=== PATIENT | male | born 1985 | race Caucasian/White ===

== ENCOUNTER 2022-04-07 06:17 | Observation (INO) ==
--- NOTE | 2022-03-16 13:51 | PAT Medication Instructions ---
Medication Instructions Date of Service March 16, 2022 Home Medications Medication Instructions Recorded Wheeled Walker #1 ea 02/25/22 Wheeled Walker #1 ea 02/25/22 Wheeled Walker #1 ea 02/25/22 escitalopram oxalate 10 mg tablet (Lexapro) 10 mg PO QAM acetaminophen 325 mg tablet (Tylenol) 325 mg PO QID PRN atorvastatin 40 mg tablet 40 mg PO HS carvedilol 3.125 mg tablet 3.125 mg PO BID cyclobenzaprine 10 mg tablet 10 mg PO TID PRN escitalopram oxalate 20 mg tablet 20 mg PO QAM gabapentin 800 mg tablet 800 mg PO TID ibuprofen 200 mg capsule 200 mg PO Q6H PRN omeprazole 40 mg capsule,delayed release 40 mg PO QAM ASK your surgeon for instructions ibuprofen 200 mg capsule 200 mg PO Q6H PRN DO NOT take the morning of surgery cyclobenzaprine 10 mg tablet 10 mg PO TID PRN Take morning of surgery With a small sip of water, OTHERWISE NOTHING TO EAT OR DRINK AFTER MIDNIGHT: escitalopram oxalate 10 mg tablet (Lexapro) 10 mg PO QAM acetaminophen 325 mg tablet (Tylenol) 325 mg PO QID PRN (okay to take up to 4 hours prior to surgery if needed) carvedilol 3.125 mg tablet 3.125 mg PO BID escitalopram oxalate 20 mg tablet 20 mg PO QAM gabapentin 800 mg tablet 800 mg PO TID omeprazole 40 mg capsule,delayed release 40 mg PO QAM Take evening before surgery acetaminophen 325 mg tablet (Tylenol) 325 mg PO QID PRN (if needed) atorvastatin 40 mg tablet 40 mg PO HS carvedilol 3.125 mg tablet 3.125 mg PO BID cyclobenzaprine 10 mg tablet 10 mg PO TID PRN (if needed) gabapentin 800 mg tablet 800 mg PO TID Other Notes If you have any questions please call us at [phone] or [phone] or [phone] or [phone]
--- NOTE | 2022-03-17 10:10 | Anesthesiology Consultation ---
Date of Service March 17, 2022 Assessment & Plan (1) Encounter for pre-operative examination: - will attempt to obtain last cardiology note. - PCP 02/10/22: "...AVN of [sic] R femoral head...denies any...shortness of breath, chest pains, palps...FU with PM...ortho consult..." - COVID screening: Per assessment on 03/17/2022: Travel screen negative, no known COVID-19 positive contacts or current COVID-19 related symptoms in past 2 weeks. Pt vaccinated. Surgeon arranging preop COVID testing, scheduled 04/05/2022. Awaiting results. Chart Review Chart Review: Pending: Refer to Additional Notes / Consult section and Patient seen in Pre Admission Testing Teaching & Discussion Pre-Anesthesia Teaching/Discussion Notes: Instructed NPO after midnight before surgery, except medications with 15 cc of water. Medication instructions provided according to the PAT guidelines. History Surgery Operation Date: 04/07/22 08:50 Proposed Procedures p Right Total Hip Arthroplasty - Jeff Molina MD Height/Weight Height: 5 ft 8 in Weight: 109 kg Allergies Allergy/AdvReac Type Severity Reaction Status Date / Time No Known Allergies Allergy Verified 03/16/22 11:10 Medications Home Medications Medication Instructions Recorded Confirmed Last Taken escitalopram oxalate 10 mg tablet 10 mg PO QAM 05/29/19 03/16/22 Unknown (Lexapro) Wheeled Walker #1 ea 02/25/22 02/25/22 Unknown Wheeled Walker #1 ea 02/25/22 02/25/22 Unknown Wheeled Walker #1 ea 02/25/22 02/25/22 Unknown acetaminophen 325 mg tablet 325 mg PO QID PRN 03/16/22 03/16/22 Unknown (Tylenol) atorvastatin 40 mg tablet 40 mg PO HS 03/16/22 03/16/22 Unknown carvedilol 3.125 mg tablet 3.125 mg PO BID 03/16/22 03/16/22 Unknown cyclobenzaprine 10 mg tablet 10 mg PO TID PRN 03/16/22 03/16/22 Unknown escitalopram oxalate 20 mg tablet 20 mg PO QAM 03/16/22 03/16/22 Unknown gabapentin 800 mg tablet 800 mg PO TID 03/16/22 03/16/22 Unknown ibuprofen 200 mg capsule 200 mg PO Q6H PRN 03/16/22 03/16/22 Unknown omeprazole 40 mg capsule,delayed 40 mg PO QAM 03/16/22 03/16/22 Unknown release Past Medical History Medical History (Updated 03/17/22 @ 10:35 by Renu Puente PA-C) Anxiety Avascular necrosis of hip Depression GERD (gastroesophageal reflux disease) controlled, stable per pt Hyperlipidemia Hypertension controlled, stable per pt Patient denies h/o stroke, seizures, heart attack, heart failure, DM, HTN, blood clots or blood transfusions. Exercise / Class Metabolic Activity II 4-5 Yardwork/Stairs/Walk up hill (denies CP or SOB with 1 FOS) Past Surgical History Surgical History (Updated 03/17/22 @ 14:05 by Renu Puente PA-C) History of cardiac cath 11/18/21--[facility] [place]: normal coronary arteries per report. Hx of removal of cyst from base of penis Hx of wisdom tooth extraction Past Anesthesia History No Hx of Anesthesia Complications and No Family Hx of Anesthesia Complications History of PONV No Hx of PONV and No Hx of Motion Sickness Social History Smoking Status: Current every day smoker tobacco type: cigarettes Smoking cigarettes per day: 1/2 - 3 ppd-advsed Do You Dip or Chew Tobacco: No Hx Alcohol Use: Yes alcohol intake frequency: holidays/special occasions only Hx Substance Use: No Last Used Substance Other:: THC gummies-advised Review of Systems Reports intermittent chest discomfort has resolved, was discharged from cardiology. Snoring, infrequent witnessed apneas. Denies sleep studies. Patient denies chest pain, shortness of breath, dyspnea on exertion, fever, chills, cough, wheezing, or palpitations. Physical Exam Vital Signs Vitals BP 118/84 P 76 TEMP 98.5 SP02 96% on RA RESP 17 Physical Full cervical extension range of motion without pain TMD 3.5 finger breaths Mallampati Score 3 Dentition: intact, one missing tooth back left upper; denies chipped or loose teeth, caps/crowns, implants or bridges Lungs: normal respiratory effort. Clear throughout to auscultation, no adventitious breath sounds Cardiac: regular rate and rhythm, no murmurs noted Carotid arteries: negative bruit bilat Lab Results Anesthesia Preop Results Results Anesthesia Widget: WBC 7.51 K/uL (4.8-10.8) 03/17/22 Hgb 13.4 g/dL (14.0-18.0) L 03/17/22 Hct 40.0 % (42-52) L 03/17/22 Plt 204 K/uL (130-400) 03/17/22 Na 139 mmol/L (136-145) 03/17/22 K 4.4 mmol/L (3.5-5.1) 03/17/22 Cl 108 mmol/L (98-107) H 03/17/22 CO2 25 mmol/L (21-32) 03/17/22 BUN 20 mg/dl (6-23) 03/17/22 Creat 0.81 mg/dl (0.6-1.4) 03/17/22 Glucose Level 99 mg/dl (70-99(Fasting)) 03/17/22 PT 11.4 Seconds (9.0-12.0) 03/17/22 PTT 29.3 Seconds (21.0-31.0) 03/17/22 INR 1.1 (0.9-1.1) 03/17/22 Blood Type A Positive 03/17/22 Antibody Screen NEGATIVE 03/17/22 Testing Electrocardiogram Date: 12/13/21 NSR, rate 73 bpm Chest X-Ray Date: 03/17/22 Lung volumes are normal. Lungs are clear. There is no pneumothorax or pleural effusion. Cardiac size is normal. Mediastinal contours are normal. There is no evidence for pulmonary edema. IMPRESSION: No acute cardiopulmonary findings. Stress Test Date: 11/03/21 Technically difficult Exercise Mid anterolateral segment and mid anterior segment are abnormal Positive stress test MPHR 87% Cardiac Catheterization Date: 11/18/21 Left main: normal. LAD: normal. Cx: normal. RCA: normal.
--- NOTE | 2022-04-02 18:48 | History and Physical Report ---
DATE OF ADMISSION: 04/07/2022. CHIEF COMPLAINT: Right hip pain. HISTORY OF PRESENT ILLNESS: The patient is a 37-year-old gentleman from the [place] who presents for surgical treatment of his right hip. He has severe pain in his right hip and it has gotten gradually worse over the past year. No particular injury. He does have a history of steroid use in the past and was diagnosed with avascular necrosis, which has progressed over time. Symptoms initially tented to wax and wane, but had just gotten worse over time. He describes groin pain, thigh pain, buttock pain. He is now using a cane to get around. He is really pretty miserable. Cannot really walk more than a block or two. He would like to have his hip fixed. PAST MEDICAL HISTORY: 1. Hypertension. 2. Elevated cholesterol. 3. Anxiety/depression. 4. Gastroesophageal reflux disease. 5. Obesity with BMI 37. 6. Back pain. PAST SURGICAL HISTORY: 1. Oral surgery. 2. Cyst removed from the base of his penis. ALLERGIES: None. CURRENT MEDICATIONS: Include: 1. Carvedilol. 2. Atorvastatin. 3. Omeprazole. 4. Multivitamin. 5. NSAIDs. 6. Fish oil. 7. Vitamin B complex. 8. Zyloprim. 9. Cyclobenzaprine. 10. Zyrtec. 11. Osteo Bi-Flex. SOCIAL HISTORY: A 37-year-old male. He is . Does not drink. He does smoke half a pack of cigarettes a day. PHYSICAL EXAMINATION: GENERAL: Shows a pleasant middle-aged male. Looks to be in reasonably good health. HEENT: Benign. NECK: Supple. No lymphadenopathy. LUNGS: Clear to auscultation. HEART: Regular rate and rhythm. ABDOMEN: Soft, nontender, nondistended. EXTREMITIES: Grossly neurovascularly intact except as follows. Examination of the right hip reveal patient walks with a bit of an antalgic gait. He does use a cane. Leg lengths are pretty equal. He has about 0.5 cm short on the right side. He has pain with hip motion. He can internally rotate to neutral. Negative straight leg raise. X-RAYS: X-rays of the right hip reveal advanced hip arthritis. He has avascular necrosis with collapse of the femoral head. He has flattening of the femoral head. He has subchondral sclerosis. Not much osteophyte formation. MRI report from [place] has been reviewed. It shows evidence of avascular necrosis of the large area of his femoral head including the weightbearing dome. 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 He has failed conservative treatment and would like to have his hip fixed. It is beyond the point where we could do any hip preserving operation. PLAN: He would like to have his hip fixed. We will proceed with right hip replacement. The risks and benefits of this procedure were explained to the patient include but not limited to DVT, PE, , infection, neurological injury, vascular injury, bleeding problem, pain, limited range of motion, incomplete relief of symptoms, and need for revision surgery in the future. The patient is aware at his young age, this might need to be redone in the future. We will proceed. He knows to hold his NSAIDs 10 days preop. He does smoke. We will likely need to use a patch in the hospital. He does have multiple comorbidities which increases risk including hypertension, elevated cholesterol, smoking history, obesity and gastroesophageal reflux disease. He is planning to be discharged to home using the Home Health program. Job ID: [id number] [facility]
[~2022-04-07 06:17] MED LIST: ACETAMINOPHEN 500 MG TAB PO SCH; CeleBREX 200 MG CAP PO SCH; FAMOTIDINE 20 MG TAB PO SCH; LR 500ML BOLUS, THEN 15ML/HR IV SCH; LR 60ML/HR IV SCH; METOCLOPRAMIDE HCL 10 MG TABLET PO SCH; Scopolamine 1 MG TDSY TD SCH; TRANEXAMIC ACID 1,000 MG **IV Pre-op IV SCH; ceFAZolin 2000MG 2,000 MG/15 ML SYR IV SCH
[2022-04-07] MEDS ORDERED: BUPIVACAINE 0.5 % 5 MG/1 ML PF 10ML VIAL ONE (06:20)
--- NOTE | 2022-04-07 06:55 | History & Physical Bridge Note ---
Date of Service April 07, 2022 History & Physical Bridge Note I have examined the patient, reviewed the History & Physical and in the interval since the performance of the History & Physical I have noted the following changes of clinical significance: no changes noted
[2022-04-07] MEDS ORDERED: MoRPHine SULFATE PF 1 MG/ML 10 ML AMP/VIAL INT SPINAL ONE (08:32)
[2022-04-07] MEDS ORDERED: NALOXONE HCL 0.4 MG/1 ML VIAL/CARP IV PRN ×2 (08:32→11:47)
[2022-04-07] MEDS ORDERED: LACTATED RINGER'S 500 ML IV PRN (08:32)
[2022-04-07] MEDS ORDERED: ONDANSETRON INJ 2 MG/ML 2 ML VIAL IV PRN ×2 (08:32→11:47)
[2022-04-07] MEDS ORDERED: MoRPHine SULFATE 2 MG/ML CARP IV PRN (08:32)
[2022-04-07] MEDS ORDERED: ePHEDrine sulfate 50 MG/ML AMP IV PRN (08:32)
[2022-04-07] MEDS ORDERED: NALOXONE HCL 0.08 MG in SYRINGE 1.8 ML IV PRN (08:32)
[2022-04-07] MEDS ORDERED: NALOXONE HCL 1 MG in SODIUM CHLORIDE 0.9% 1000ML 1,000 ML IV PRN (08:32)
[2022-04-07] MEDS ORDERED: NALBUPHINE HCL INJ 10 MG/ML AMP IV PRN (08:32)
[2022-04-07] MEDS ORDERED: MIDAZOLAM HCL 1 MG/ML 2ML VIAL ONE (08:37)
[2022-04-07] MEDS ORDERED: MoRPHine SULFATE PF 1 MG/ML 10 ML AMP/VIAL ONE (08:38)
[2022-04-07] MEDS ORDERED: BUPIVACAINE 0.5 % 5 MG/1 ML MPF 30ML VIAL ONE (08:43)
[2022-04-07] MEDS ORDERED: EPINEPHrine INJ 1 MG/ML AMP ONE (08:44)
[2022-04-07] MEDS ORDERED: SODIUM CHLORIDE 0.9% 1000ML 1,000 ML IV SCH ×2 (08:45→11:47)
[2022-04-07] MEDS ORDERED: DC INTRASPINAL MORPHINE SCH (08:45)
[2022-04-07] MEDS ORDERED: NO NARCOTICS OR SEDATIVES SCH (08:45)
[2022-04-07] MEDS ORDERED: PROPOFOL IV EMULSION 10 MG/ML 20 ML VIAL IV ONE (08:56)
[2022-04-07] MEDS ORDERED: ONDANSETRON INJ 2 MG/ML 2 ML VIAL ONE (10:14)
[2022-04-07] MEDS ORDERED: DEXAMETHASONE SOD INJ 4 MG/ML VIAL ONE (10:15)
--- NOTE | 2022-04-07 10:52 | Operative Report ---
PG Post Operative Report Pre & Post Diagnosis Operation Date: 04/07/22 08:50 Pre-Op Diagnosis: Avascular necrosis/osteoarthritis Hip Right Post-Op Diagnosis: Avascular necrosis/osteoarthritis Hip Right I identified the patient and participated in the time-out.: Yes Procedure Operation Date: 04/07/22 08:50 Actual Procedures p Right Total Hip Arthroplasty(Right) - Jeff Molina MD Surgeon Jeff Molina MD Labor Contract Analyst Edmundo Marie PA-C Estimated Blood Loss 200 Findings Consistent with Post-Op Diagnosis Operative findings revealed a moderate sized hip joint effusion. He had collapse of the femoral head and delamination of the cartilage over of the upper 40% of the femoral head. Not much in way of osteophyte formation. There were multiple loose bodies and loose cartilage pieces in the hip joint. Fluids 1300 cc Specimens Right femoral head sent for pathology Anesthesia Type Spinal MAC Complications none Disposition Accompanied Patient To Recovery: Yes Indications Patient is a 37-year-old gentleman has had a year history of gradual progressive increased right hip pain discomfort that is gotten worse over time. He had x- rays showed a femoral head collapse with avascular necrosis. He had an MRI which confirmed this and is gotten both of his femoral heads. The right side was much more symptomatic than the left. He was having trouble getting around. He elected proceed with total hip arthroplasty. Description of Procedure Operative implants consist of: 1. Biomet G7 size 54 mm acetabular shell. 2. 6.5 cancellous acetabular screws 1 of 35 mm length and 125 mm length. 3. Vinton hole protohistorian. 4. Highly cross-linked polyethylene liner with a 54 mm outer diameter and 36 mm inner diameter. 5. DePuy Corail size 11 KLA femoral stem. 6. +5/36 mm ceramic articular ball. The patient was taken to the operating, identified, placed on the operating table supine position protectors were properly padded. IV antibiotics arrived by anesthesia team. A spinal anesthetic and been implemented holding area. Barney catheter was placed in sterile fashion. The patient then placed in the l eft lateral cubitus position. An axillary roll was placed. A Stulberg Positioner was used for positioning. The right hip and leg were then prepped and draped in usual sterile fashion. A posterior lateral approach of the right hip was then performed to a curvilinear incision centered over the greater trochanter. Sharp dissection Through subcutaneous tissue down above the IT band gluteal fascia the IT band gluteal fascia was lysed longitudinally in line with skin incision. The piriformis and external rotators along with the posterior hip joint capsule were then released from the posterior aspect hip joint as a single layer. Great care was taken throughout the procedure protect the sciatic nerve at all times. Hip was internally rotated and dislocated. Femoral neck osteotomy cut was made with Final Cut about 10 mm above the lesser trochanter. Femoral head was removed and sent for pathology. The femur was retracted anteriorly. Attention drawn the acetabulum. The acetabular labrum was excised. The pulmonary fat was excised. I did use a curette to curette with remaining cartilage out of the acetabulum. Sequential reaming the acetabulum was then performed begin with size 45 and progressing up to a 53. I did reamed a little bit with a 54 reamer. A Biomet G7 size 52 mm acetabular shell was then placed in about 40 degrees lateral opening and 20 degrees of anteversion. Was fixed with two 6.5 cancellous acetabular screws. Trial liner was placed. Attention drawn the femur. The proximal femur was entered with a Iizuu cutter followed by canal finder. I broached the proximal femur beginning with size 8 and progressing up to an 11. Got excellent fit 11. A very good cancellous envelope. I then trialed the hip and the +5 articular ball seem to recreate leg lengths equal, soft tissue tension appropriate and was fully stable in full extension and external rotation and flexion to 90 degrees and internal rotation over [address] I elect to place these implants. Nupathe all trial implants were removed. An apex hole protohistorian was placed. Highly cross-linked polyethylene liner was placed. A DePuy SearchMan SEOA size 11 femoral stem was impacted in position. +5/36 mm ceramic articular ball was placed. Hip was located once again found to be stable. Attention drawn toward closing. The wounds irrigated copious also pulsatile lavage solution. I did inject locally with 60 cc of half percent Marcaine with epinephrine. The posterior capsule and external rotators then repaired through drill holes in the posterior trochanter with #2 Tycron suture. The IT band gluteal fascia then closed in 1 PDS suture in a running fashion for subcutaneous tissue then closed with 2 layers of the deep layer #2 Vicryl suture in the subcutaneous tissues with 2-0 Dexon suture in a buried interrupted fashion. Skin was closed skin duyen. The leg was then cleaned and dried. A Prevena VAC dressing was applied due to his fairly thick soft tissue envelope. The patient was then transferred to the recovery room in stable condition. Patient tolerated procedure well and there were no complications. Edmundo Marie, my physician home health assistant, was present for the entire procedure. His assistance was essential and required for appropriate patient positioning, prepping and draping, surgical exposure, performing the technical details of the operation, placement the implants, closure of the wound, and placement of the sterile bandage. I attest to the content of the Intraoperative Record and any orders documented therein. Any exceptions are noted below.
--- NOTE | 2022-04-07 11:19 | XRay Report ---
XR hip 1V RT w pelvis CLINICAL HISTORY: IN PACU - A/P PELVIS and LATERAL HIP . Status post total hip replacement COMPARISON STUDY: No previous studies for comparison. TECHNIQUE: 2 right hip views FINDINGS: The patient is status post total hip replacement. The prosthetic components are in anatomic alignment with no acute abnormality seen. Skin duyen are seen from the recent procedure. IMPRESSION: 1. Status post total hip replacement ACT 112: Negative or not required by law. Electronically signed by: Dave Vásquez M.D. 04/07/2022 11:18 AM
[2022-04-07] MEDS ORDERED: TAMSULOSIN HCL 0.4 MG CAP PO PRN (11:47)
[2022-04-07] MEDS ORDERED: bisacodyL 10 MG SUPP PR PRN (11:47)
[2022-04-07] MEDS ORDERED: METOCLOPRAMIDE HCL INJ 5 MG/ML 2 ML VIAL IV PRN (11:47)
[2022-04-07] MEDS ORDERED: MAGNESIUM HYDROXIDE SUSP 30 ML UDC PO PRN (11:47)
[2022-04-07] MEDS ORDERED: ALUMINUM/MAGNESIUM SUSP 30 ML UDC PO PRN (11:47)
--- NOTE | 2022-04-07 12:04 | Anesthesiology Progress Note ---
Date of Service April 07, 2022 Anesthesia Post Procedure Vital Signs Vital Signs: Temp Pulse Resp BP BP Pulse Ox 04/07/22 11:45 86 19 101/76 95 04/07/22 11:30 65 16 101/66 92 04/07/22 11:15 36.6 C 55 L 14 117/80 95 04/07/22 11:05 54 L 13 113/72 91 04/07/22 10:55 57 L 16 120/89 94 04/07/22 10:45 54 L 13 127/86 100 04/07/22 10:36 36.3 C L 54 L 14 130/80 98 04/07/22 06:46 36.7 C 77 18 148/71 H 99 Pain Intensity Right Hip: Pain Intensity: 0 Transfer of Care Handoff Completed per policy Notes Mental Status: alert / awake / arousable and participated in evaluation Patient Amnestic to Procedure: Yes Nausea / Vomiting: adequately controlled Pain: adequately controlled Airway Patency, RR, SpO2: stable & adequate BP & HR: stable & adequate Hydration State: stable & adequate Anesthetic Complications: no major complications apparent and Pt Satisfied with anesthetic care
[2022-04-07] MEDS: GABAPENTIN 800 MG TAB PO SCH ×2 (14:15→20:51)
[2022-04-07] MEDS: ACETAMINOPHEN 500 MG TAB PO SCH ×2 (14:15→21:38)
[2022-04-07] MEDS ORDERED: TRANEXAMIC ACID / 0.7% NACL 1,000 MG/100 ML BAG IV SCH ×3 (15:00→17:00)
[2022-04-07] MEDS: Scopolamine CHECK PATCH PLACEMENT SCH ×2 (16:22→23:19)
[2022-04-07] MEDS: ASCORBIC ACID 500 MG TAB PO SCH (17:14)
[2022-04-07] MEDS: KETOROLAC 30 MG/ML VIAL IV SCH ×2 (17:18→23:20)
[2022-04-07] MEDS: ceFAZolin 2000MG 2,000 MG/15 ML SYR IV SCH (18:25)
[2022-04-07] MEDS: diphenhydrAMINE 50 MG/ML VIAL IV PRN (18:36)
[2022-04-07] MEDS: carvediloL 3.125 MG TAB PO SCH (20:51)
[2022-04-07] MEDS: ASPIRIN 81 MG ECTAB PO SCH (20:52)
[2022-04-07] MEDS: DOCUSATE SODIUM 100 MG CAP PO SCH (20:55)
[2022-04-07] MEDS ORDERED: ATORVASTATIN 40 MG TAB PO SCH (21:00)
[2022-04-07] MEDS ORDERED: SENNA 8.6 MG TAB PO SCH (21:00)
[2022-04-08] MEDS: diphenhydrAMINE 50 MG/ML VIAL IV PRN (00:34)
[2022-04-08] MEDS: ceFAZolin 2000MG 2,000 MG/15 ML SYR IV SCH (01:21)
[2022-04-08] MEDS ORDERED: CYCLOBENZAPRINE HCL 10 MG TAB PO PRN (02:33)
[2022-04-08] MEDS ORDERED: oxyCODONE HCL IR 5 MG TAB (IMMEDIATE RELEASE) PO PRN (02:33)
[2022-04-08] MEDS ORDERED: HYDROmorphone INJ 0.5 MG/0.5 ML SYR IV PRN (02:33)
[2022-04-08] MEDS ORDERED: diphenhydrAMINE Capsule 25 MG CAP PO PRN (02:33)
[2022-04-08] MEDS: ACETAMINOPHEN 500 MG TAB PO SCH (05:52)
[2022-04-08] MEDS: KETOROLAC 30 MG/ML VIAL IV SCH (05:58)
[2022-04-08] MEDS: Scopolamine CHECK PATCH PLACEMENT SCH (07:52)
[2022-04-08] MEDS: ASCORBIC ACID 500 MG TAB PO SCH (07:53)
[2022-04-08] MEDS: ASPIRIN 81 MG ECTAB PO SCH (07:54)
[2022-04-08] MEDS: GABAPENTIN 800 MG TAB PO SCH (07:55)
[2022-04-08] MEDS: DOCUSATE SODIUM 100 MG CAP PO SCH (07:59)
[2022-04-08] MEDS: carvediloL 3.125 MG TAB PO SCH (08:00)
--- NOTE | 2022-04-08 08:44 | Progress Notes ---
DATE OF SERVICE: 04/08/2022. SUBJECTIVE: A 37-year-old gentleman, postoperative day 1 from right hip replacement done for AVN. H e is doing quite well. Minimal pain. No chest pain or shortness of breath. Not feeling dizzy or li ghtheaded. OBJECTIVE: VITAL SIGNS: Temperature 36.7. Vital signs are stable. PHYSICAL EXAMINATION: GENERAL: Shows a pleasant middle-aged male. He is sitting up in bed, looks comfortable. LUNGS: Clear to auscultation. HEART: Regular rate and rhythm. ABDOMEN: Soft, nontender, nondistended. EXTREMITIES: Grossly neurovascularly intact except as follows: Examination of the right hip reveals the Prevena VAC dressing in place. Leg lengths were equal. Hip is located. He can dorsiflex and p lantarflex his foot appropriately. He is neurologically intact. ASSESSMENT: A 37-year-old gentleman, postoperative day 1 from right hip replacement for avascular ne crosis, doing quite well. Pain is controlled. He is neurologically intact. Hip is located. PLAN: 1. DVT prophylaxis includes thigh-high TEDs, SCDs, and aspirin twice a day. 2. PT, OT, weightbear as tolerated. Right total hip protocol. 3. Pain control, doing well with current pain regimen. 4. Disposition: Plan to discharge to home with some home health hopefully later today if he does ok ay in therapy. Job ID: [id number]
[2022-04-08] MEDS ORDERED: PANTOprazole 40 MG TAB PO SCH (09:00)
[2022-04-08] MEDS ORDERED: ESCITALOPRAM OXALATE 10 MG TAB PO SCH (09:00)
[2022-04-08] MEDS ORDERED: MULTIVITAMIN TAB PO SCH (09:00)
[2022-04-08] MEDS ORDERED: DOCUSATE SODIUM/SENNA 50/8.6MG TAB PO SCH (09:00)
[2022-04-08 09:03] LABS: Basophils # (auto) 0.02 K/uL (0-0.2); Basophils % (auto) 0.2 %; Eosinophils # (auto) 0.11 K/uL (0-0.5); Eosinophils % (auto) 0.8 %; Hematocrit (blood only) 35.1 % (42-52); Hemoglobin 12.1 g/dL (14.0-18.0); Immature Granulocytes # (auto) 0.04 K/uL (0.00-0.02); Immature Granulocytes % (auto) 0.3 %; Lymphocytes # (auto) 2.95 K/uL (1.2-3.4); Lymphocytes % (auto) 22.2 %; Mean Corpuscular Hemoglobin 32.4 pg (25-34); Mean Corpuscular Hgb Conc 34.5 g/dL (32-36); Mean Corpuscular Volume 94.1 fL (80-100); Mean Platelet Volume 11.7 fL (7.4-10.4); Monocytes # (auto) 1.47 K/uL (0.11-0.59); Monocytes % (auto) 11.1 %; Neutrophils # (auto) 8.71 K/uL (1.4-6.5); Neutrophils % (auto) 65.4 %; Platelet Count 178 K/uL (130-400); RDW Coefficient of Variation 13.2 % (11.5-14.5); RDW Standard Deviation 45.3 fL (36.4-46.3); Red Blood Count 3.73 M/uL (4.7-6.1)
[2022-04-08 09:44] LABS: BUN Creatinine Ratio 18.5 (10-20); Calcium 9.4 mg/dl (8.5-10.1); Creatinine Clr Calc Pharmacy 150.6 ml/min; Est GFR (African American) 129.8 ml/min; Potassium 3.7 mmol/L (3.5-5.1)
== END 2022-04-08 11:00 | disposition home health service (06) ==
LOC: PACUINP 06:17 → ASU 06:17 → 3W 13:18

== ENCOUNTER 2025-06-30 05:56 | Observation (INO) ==
--- NOTE | 2025-06-18 10:37 | PAT Medication Instructions ---
Medication Instructions Date of Service June 18, 2025 Home Medications Medication Instructions Recorded amoxicillin 500 mg capsule 2,000 mg (4 x 500 mg) PO ONCE #4 11/05/24 caps gabapentin 300 mg capsule 300 mg PO TID #90 caps 05/13/25 buspirone 10 mg tablet 10 mg PO TID #270 tabs 05/26/25 clonazepam 1 mg tablet (Klonopin) 1 mg PO BID #60 tabs 05/29/25 cetirizine [Allergy Relief (cetirizine)] 10 mg PO HS diphenhydramine HCl [Benadryl Allergy] 5 mg PO HS vitamin B complex [B Complex-Vitamin B12] 1 dose PO HS multivitamin (Daily Multi-Vitamin tablet) 1 tab PO QAM amoxicillin 500 mg capsule 2,000 mg (4 x 500 mg) PO ONCE melatonin 10 mg capsule 10 mg PO HS PRN Insomnia gabapentin 300 mg capsule 300 mg PO TID buspirone 10 mg tablet 10 mg PO TID clonazepam 1 mg tablet (Klonopin) 1 mg PO BID losartan 50 mg tablet 50 mg PO QAM sertraline 100 mg tablet 100 mg PO QAM Continue as directed amoxicillin 500 mg capsule 2,000 mg (4 x 500 mg) PO ONCE DO NOT take the morning of surgery multivitamin (Daily Multi-Vitamin tablet) 1 tab PO QAM losartan 50 mg tablet 50 mg PO QAM Take morning of surgery With a small sip of water, OTHERWISE NOTHING TO EAT OR DRINK AFTER MIDNIGHT: gabapentin 300 mg capsule 300 mg PO TID buspirone 10 mg tablet 10 mg PO TID clonazepam 1 mg tablet (Klonopin) 1 mg PO BID sertraline 100 mg tablet 100 mg PO QAM Take evening before surgery cetirizine [Allergy Relief (cetirizine)] 10 mg PO HS diphenhydramine HCl [Benadryl Allergy] 5 mg PO HS vitamin B complex [B Complex-Vitamin B12] 1 dose PO HS melatonin 10 mg capsule 10 mg PO HS PRN Insomnia (if needed) gabapentin 300 mg capsule 300 mg PO TID buspirone 10 mg tablet 10 mg PO TID clonazepam 1 mg tablet (Klonopin) 1 mg PO BID Other Notes If you have any questions please call us at [phone] or [phone] or [phone] or [phone]
--- NOTE | 2025-06-23 13:29 | Anesthesiology Consultation ---
Date of Service June 23, 2025 Assessment & Plan (1) Encounter for pre-operative examination: Chart Review Chart Review: Acceptable Risk for Surgery and Patient seen in Pre Admission Testing Per PAT appt on 06/23/25, no recent illness/disease exposures, illness related symptoms, or recent illness/disease positive tests. Will leave to surgeon's discretion if preop Covid testing needed Teaching & Discussion Pre-Anesthesia Teaching/Discussion Notes: Instructed NPO after midnight before surgery,except medications with 15 cc of water. Medication instructions provided according to the PAT guidelines. History Surgery Operation Date: 06/30/25 11:00 Proposed Procedures p L4-L5 Interbody Fusion Post Instrumentation, with Spinal Cord Monitoring and Navigation - Brian Sanchez MD Height/Weight Height: 5 ft 8 in Weight: 102 kg Allergies Allergy/AdvReac Type Severity Reaction Status Date / Time No Known Allergies Allergy Verified 06/23/25 10:22 Medications Home Medications Medication Instructions Recorded Confirmed Last Taken diphenhydramine HCl [Benadryl 5 mg PO HS 03/21/23 06/23/25 Unknown Allergy] gabapentin 300 mg capsule 300 mg PO TID #90 caps 05/13/25 06/23/25 Unknown buspirone 10 mg tablet 10 mg PO TID #270 tabs 05/26/25 06/23/25 Unknown clonazepam 1 mg tablet (Klonopin) 1 mg PO BID #60 tabs 05/29/25 06/23/25 Unknown losartan 50 mg tablet 50 mg PO QAM 06/12/25 06/23/25 Unknown sertraline 100 mg tablet 100 mg PO QAM 06/12/25 06/23/25 Unknown amoxicillin 500 mg capsule 2,000 mg (4 x 500 mg) PO ONCE #4 06/23/25 06/23/25 Unknown caps ferrous sulfate 325 mg (65 mg 325 mg PO DAILY 06/23/25 06/23/25 Unknown iron) tablet (Feosol) ibuprofen 200 mg capsule 800 mg PO .Q4 PRN 06/23/25 06/23/25 Unknown Past Medical History Medical History Anxiety Depression GERD (gastroesophageal reflux disease) takes OTC PRN- well controlled and stable HTN (hypertension) Hyperlipidemia Lumbar radiculopathy Exercise / Class Metabolic Activity II 4-5 Yardwork/Stairs/Walk up hill (one flight of stairs - no chest pain or SOB ) Past Family History Family History Father Hypertension Diabetes Stroke Heart disease Heart failure Triple vessel coronary artery disease Mother Schizophrenia Obese Edema Hypertension Family/Other Brain cancer Grandfather (Maternal) Prostate cancer Denies family history of Ovarian cancer Myocardial infarction Breast cancer Colorectal cancer Past Surgical History Surgical History History of cardiac cath 11/18/21--[facility] [place]: normal coronary arteries per report. Hx of removal of cyst from base of penis Hx of wisdom tooth extraction Status post right hip replacement 03/2022 [facility] Past Anesthesia History No Hx of Anesthesia Complications and No Family Hx of Anesthesia Complications History of PONV No Hx of PONV and No Hx of Motion Sickness Social History Smoking Status: Current every day smoker tobacco type: cigarettes Smoking cigarettes per day: 20 cigs/day Do You Dip or Chew Tobacco: No Hx Alcohol Use: Yes alcohol intake frequency: a few times a month Hx Substance Use: No Review of Systems Patient denies chest pain, shortness of breath, dyspnea on exertion, cough, wheezing, palpitations. No hx of seizures, stroke, [place], apnea/snoring. No hx of blood clots or blood transfusions Physical Exam Vital Signs VITALS BP 130/89 P 97 TEMP 97.8 SP02 95% RESP 16 Constitutional no acute distress ENMT Mouth: no TMJ clicking Thyromental Distance: > or= 3.5 Finger Breadths (3.5) Mallampati Class: II Missing molars Neck neck extension not limited Respiratory normal respiratory effort; no respiratory distress Auscultation: lungs clear to auscultation bilaterally; no wheezes Cardiovascular Rate/Rhythm: regular rate and regular rhythm Heart Sounds: no murmur Vessels: no carotid bruit Musculoskeletal Spine: no pain with cervical ROM Extremities: extremities normal to inspection Psychiatric Orientation: alert Lab Results Anesthesia Preop Results Results Anesthesia Widget: WBC 6.87 K/ul (4.8-10.8) 06/23/25 Hgb 14.2 g/dl (14.0-18.0) 06/23/25 Hct 40.2 % (42.0-52.0) L 06/23/25 Plt 173 K/uL (130-400) 06/23/25 Na 140 mmol/L (136-145) 06/23/25 K 3.6 mmol/L (3.5-5.1) 06/23/25 Cl 106 mmol/L (98-107) 06/23/25 CO2 27 mmol/L (21-32) 06/23/25 BUN 11 mg/dl (6-23) 06/23/25 Creat 0.74 mg/dl (0.6-1.4) 06/23/25 Glucose Level 107 mg/dl (70-99(Fasting)) H 06/23/25 PT 11.2 Seconds (9.0-12.0) 06/23/25 PTT 28 Seconds (21-31) 06/23/25 INR 1.0 (0.9-1.1) 06/23/25 HA1c 5.5 % (4.5-5.6) 06/23/25 Blood Type A Positive 06/23/25 Antibody Screen NEGATIVE 06/23/25 Testing Electrocardiogram Date: 06/23/25 Findings: + NSR @ (81bpm) Incomplete RBBB Chest X-Ray Date: 06/23/25 Findings: + NAD Stress Test Date: 11/03/21 Technically difficult Exercise Mid anterolateral segment and mid anterior segment are abnormal Positive stress test MPHR 87% Had subsequent cardiac cath 11/18/21 Cardiac Catheterization Date: 11/18/21 Left main: normal. LAD: normal. Cx: normal. RCA: normal.
[2025-06-30] MEDS: ACETAMINOPHEN 500 MG TAB PO SCH (06:39)
[2025-06-30] MEDS ORDERED: KETAMINE HCL 10MG/ML SYR ONE ×2 (06:44→10:32)
[2025-06-30] MEDS ORDERED: MIDAZOLAM HCL 1 MG/ML 2ML VIAL ONE (06:44)
[2025-06-30] MEDS ORDERED: PROPOFOL IV EMULSION 10 MG/ML 100 ML VIAL IV ONE ×3 (06:44→10:18)
[2025-06-30] MEDS: LR 15ML/HR IV SCH (06:47)
[2025-06-30] MEDS ORDERED: SUCCINYLCHOLINE 100MG/5ML SYR IV ONE (07:01)
[2025-06-30] MEDS ORDERED: LARYING-O-JET KIT (LTA) ONE (07:02)
[2025-06-30] MEDS ORDERED: ONDANSETRON INJ 2 MG/ML 2 ML VIAL IV PRN ×2 (07:05→14:18)
[2025-06-30] MEDS ORDERED: HYDROmorphone INJ 2 MG/ML SYR/VIAL IV PRN (07:05)
[2025-06-30] MEDS ORDERED: PROMETHAZINE HCL 6.25 MG in SODIUM CHLORIDE 0.9% 50 ML IV PRN (07:05)
[2025-06-30] MEDS ORDERED: ATROPINE SULFATE 0.1 MG/ML 10ML SYR IV PRN (07:05)
--- NOTE | 2025-06-30 07:11 | History & Physical Bridge Note ---
Date of Service June 30, 2025 History & Physical Bridge Note I have examined the patient, reviewed the History & Physical and in the interval since the performance of the History & Physical I have noted the following changes of clinical significance: no changes noted
[2025-06-30] MEDS ORDERED: ePHEDrine sulfate 50 MG/5 ML SYR ONE (08:04)
[2025-06-30] MEDS ORDERED: HYDROmorphone INJ 2 MG/ML SYR/VIAL ONE (08:36)
[2025-06-30] MEDS ORDERED: DEXAMETHASONE SOD INJ 4 MG/ML VIAL ONE (08:38)
[2025-06-30] MEDS ORDERED: ONDANSETRON INJ 2 MG/ML 2 ML VIAL ONE (08:38)
[2025-06-30] MEDS: VANCOMYCIN HCL 1000MG/20ML VIAL ONE (10:19)
--- NOTE | 2025-06-30 11:38 | Anesthesiology Progress Note ---
Date of Service June 30, 2025 Anesthesia Post Procedure Transfer of Care Handoff Completed per policy Notes Mental Status: alert / awake / arousable Patient Amnestic to Procedure: Yes Nausea / Vomiting: adequately controlled Pain: adequately controlled Airway Patency, RR, SpO2: stable & adequate BP & HR: stable & adequate Hydration State: stable & adequate Anesthetic Complications: no major complications apparent
[2025-06-30] MEDS: THROMBIN 5000 UNITS KIT ONE (11:54)
[2025-06-30] MEDS: BUPIVACAINE/EPINEPHRINE 0.5% MPF 1:200,000 30 ML VIAL ONE (11:54)
[2025-06-30] MEDS: GELATIN SPONGE 12-7MM ONE (11:54)
[2025-06-30] MEDS ORDERED: KETOROLAC 30 MG/ML VIAL ONE (12:07)
--- NOTE | 2025-06-30 12:14 | Post Operative Brief Note ---
PG Immediate Post Op with CF Date of Surgery June 30, 2025 Pre & Post Diagnosis Operation Date: 06/30/25 07:30 Pre-Op Diagnosis: PARS Defect of Lumbar Spine, Left Lumbar Radiculopathy Post-Op Diagnosis: PARS Defect of Lumbar Spine, Left Lumbar Radiculopathy I identified the patient and participated in the time-out.: Yes Procedure Operation Date: 06/30/25 07:30 Actual Procedures p L4-L5 Interbody Fusion, Posterior Instrumentation with Navigation, Spinal Cord Monitoring(Not Applicable) - Brian Sanchez MD Surgeon Brian Sanchez MD Supervisor Sunglasses James Stokes Estimated Blood Loss 30 Findings Consistent with Post-Op Diagnosis Specimens Specimen Description: none per surgeon Drains Barney Catheter (inserted after induction of anesthesia without difficulty by Mary Jane Naidu RN. Removed at end of procedure per surgeon request)
--- NOTE | 2025-06-30 12:36 | Fluoroscopy Report ---
FL lumbar spine 2-3V CLINICAL HISTORY: L4-L5 INTERBODY FUSION COMPARISON STUDY: None FLUOROSCOPY TIME: 108 seconds FLUOROSCOPY IMAGES: 10 EXPOSURE DOSE: 63 mGy FINDINGS: Fluoroscopy was provided for lower lumbar surgery. IMPRESSION: Intraoperative fluoroscopy. ACT 112: Negative or not required by law. Electronically signed by: Tj Garrett M.D. 06/30/2025 12:34 PM
--- NOTE | 2025-06-30 13:38 | CT Scan Report ---
CT lumbar spine wo con CLINICAL HISTORY: O-ARM L4-L5 INTERBODY FUSION COMPARISON STUDY: 03/20/2025 FINDINGS: CT guidance was provided for L4-5 interbody fusion. Dose length product is 1318 mGycm. IMPRESSION: CT for intraoperative guidance. ACT 112: Negative or not required by law. Electronically signed by: Tj Garrett M.D. 06/30/2025 1:36 PM
[2025-06-30] MEDS ORDERED: LORazepam 0.5 MG TAB PO PRN (14:18)
[2025-06-30] MEDS ORDERED: ALUMINUM/MAGNESIUM SUSP 30 ML UDC PO PRN (14:18)
[2025-06-30] MEDS ORDERED: ACETAMINOPHEN 500 MG TAB PO PRN (14:18)
[2025-06-30] MEDS ORDERED: MAGNESIUM HYDROXIDE SUSP 30 ML UDC PO PRN (14:18)
[2025-06-30] MEDS ORDERED: DO NOT ADMINISTER PNEUMOCOCCAL VACCINE PRN (14:18)
[2025-06-30] MEDS ORDERED: DO NOT ADMINISTER FLU VACCINE PRN (14:18)
[2025-06-30] MEDS ORDERED: PROMETHAZINE 12.5 MG/50.5 ML BAG IV PRN (14:18)
[2025-06-30] MEDS ORDERED: FAMOTIDINE 20 MG TAB PO PRN (14:18)
[2025-06-30] MEDS ORDERED: SOD PHOSPHATE/SOD BIPHOSPHATE ENEMA 132 ML BTL PR PRN (14:18)
[2025-06-30] MEDS ORDERED: ACETAMINOPHEN 1,000 MG/100 ML VIAL IV PRN (14:18)
[2025-06-30] MEDS ORDERED: ONDANSETRON 4 MG OD TAB PO PRN (14:18)
[2025-06-30] MEDS ORDERED: NALOXONE HCL 0.4 MG/1 ML VIAL/CARP IV PRN (14:18)
[2025-06-30] MEDS ORDERED: METOCLOPRAMIDE HCL INJ 5 MG/ML 2 ML VIAL IV PRN (14:18)
[2025-06-30] MEDS: LACTATED RINGER'S 1,000 ML IV SCH (15:00)
[2025-06-30] MEDS: LR 60ML/HR IV SCH (15:24)
--- NOTE | 2025-06-30 15:43 | Operative Report ---
PG Post Operative Report Pre & Post Diagnosis Operation Date: 06/30/25 07:30 Pre-Op Diagnosis: PARS Defect of Lumbar Spine, Left Lumbar Radiculopathy Post-Op Diagnosis: PARS Defect of Lumbar Spine, Left Lumbar Radiculopathy I identified the patient and participated in the time-out.: Yes Procedure Operation Date: 06/30/25 07:30 Actual Procedures p L4-L5 Interbody Fusion, Posterior Instrumentation with Navigation, Spinal Cord Monitoring(Not Applicable) - Brian Sanchez MD Surgeon Brian Sanchez MD Bottom Bleacher James Stokes Estimated Blood Loss 30 Findings Consistent with Post-Op Diagnosis Specimens None Description of Procedure 1. Right L4-5 lateral lumbar interbody fusion. (02404) 2. Insertion of intervertebral device L4-5, NuVasive XLIF cage, cohere XL, 10 x 18 x 60 mm lordotic. (24857) 3. Posterior nonsegmental instrumentation L4-5, Medtronic Voyager. (47170) 4. Stereotactic CT-guided navigation for instrumentation. (23271) Patient was taken the operating room after adequate anesthesia was carefully positioned in the left lateral decubitus position right side up and carefully checked for positioning. After doing so adjustments were made using fluoroscopic assistance to align the patient on the table for the lateral approach, secured with tape in routine fashion. A preprepped was performed, I brought in fluoroscopy to [facility] for the approximate location of the incision on the right side just over the iliac crest, prep and drape was performed. A preprepped was performed, I brought in fluoroscopy to [facility] for the approximate location of the incision on the right side just over the iliac crest, prep and drape was performed. I began the procedure with a transverse incision just over the right iliac crest and from here I was able to carefully dissect down through the subcutaneous tissues and into the retroperitoneal area, no issues were noted. I was able to palpate the psoas and was able to then insert the initial dilator using monitoring and was able to find an appropriate location in the midportion of the L4-5 disc space using fluoroscopic control and the monitoring. A wire was then inserted, and using monitoring was able to then continue with the additional dilators followed by the access apparatus. Visual inspection revealed no issues in this region, this was also inspected with the probe. The harsh was then set using fluoroscopic control and the monitoring, I began the procedure with incising the annulus using a combination of instruments to remove the disc space material thoroughly and cartilage from the endplates. I then went through trials selecting the size cage as noted which appeared to fit this interspace best and provide some reduction of the spondylolisthesis. This device was then obtained, and inserted with fusion materials both within and exterior to the cage with excellent position on AP and lateral views. The access apparatus device was then removed visual inspection of this region revealed no issues, the operative site was closed with some 0 and 2-0 Vicryl sutures and duyen for the skin. The patient was then repositioned prone on the Clifford frame, fluoroscopy was brought in to [facility]os for the appropriate area for the incision and also checked the reduction of spondylolisthesis achieved with the cage. The right iliac crest was then marked and I inserted a post pin into the right iliac crest and the array for the navigation was attached. Sterile dressings were applied, the O-arm was brought in we then performed the spin for the navigation. Using navigation I utilized this to insert the pedicle screws, this first started at the L5 level left and right sides with insertion of 6.5 millimeter screws and the left L4 screw. At this time the monitoring with a CT navigation relates some information not consistent with the findings, an additional spin was performed to redo the information for the placement of the instrumentation and make adjustments. Prior screws were then removed and then replaced with screws and new positions which better matched the anatomy, 50 mm in length. The final spin revealed all hardware to be in proper position. The connecting rods were then inserted and set to help with the additional reduction, these were torqued down properly which provided some additional improvement of the spondylolisthesis. The operative insertion sites were then irrigated, vancomycin powder was placed. 0 Vicryl sutures were used through close the fascial layer followed by 2-0 Vicryl sutures and duyen for the skin in all locations. Sterile dressings were applied, the patient was taken recovery room in satisfactory condition. I attest to the content of the Intraoperative Record and any orders documented therein. Any exceptions are noted below. I attest to the content of the Intraoperative Record and any orders documented therein. Any exceptions are noted below.
[2025-06-30] MEDS: busPIRone 5 MG TAB PO SCH (16:10)
[2025-06-30] MEDS: KETOROLAC 30 MG/ML VIAL IV SCH (16:10)
[2025-06-30] MEDS: GABAPENTIN 300 MG CAP PO SCH (16:10)
[2025-06-30] MEDS: HYDROmorphone INJ 1 MG/ML SYRINGE IV PRN (18:18)
[2025-06-30] MEDS: DOCUSATE SODIUM/SENNA 50/8.6MG TAB PO SCH (20:08)
[2025-06-30] MEDS: clonazePAM 1 MG TAB PO SCH (20:08)
[2025-06-30] MEDS ORDERED: DIPHENHYDRAMINE HCL PO SCH (21:00)
[2025-06-30] MEDS: diphenhydrAMINE Capsule 25 MG CAP PO PRN (22:52)
[2025-07-01 03:14] VITALS: O2SAT 97
[2025-07-01] MEDS: POLYETHYLENE (MIRALAX) 17 GM PACK PO SCH (05:39)
[2025-07-01 08:08] VITALS: BP 127/83; PULSE 102; RESP 16; TEMP 98.4
[2025-07-01] MEDS: FERROUS SULFATE 325 MG TAB PO SCH (08:24)
[2025-07-01] MEDS: LOSARTAN POTASSIUM 50 MG TAB PO SCH (08:24)
[2025-07-01] MEDS: SERTRALINE HCL 100 MG TABLET PO SCH (08:25)
[2025-07-01 09:33] LABS: Hematocrit (blood only) 35.2 % (42.0-52.0); Hemoglobin 11.7 g/dl (14.0-18.0); Immature Granulocytes # (auto) 0.03 K/uL (0.01-0.20); Immature Granulocytes % (auto) 0.3 %; Mean Corpuscular Hemoglobin 31.5 pg (25.0-34.0); Mean Corpuscular Volume 94.6 fL (80.0-100.0); Platelet Count 133 K/uL (130-400); RDW Standard Deviation 45.2 fL (36.4-46.3); Red Blood Count 3.72 M/uL (4.70-6.10); White Blood Count 9.66 K/ul (4.8-10.8)
--- NOTE | 2025-07-01 09:42 | XRay Report ---
XR lumbar spine 2-3V CLINICAL HISTORY: post-op spine surgery COMPARISON STUDY: 04/14/2023 and 06/30/2025 FINDINGS: Posterior metallic fusion with interbody device at L4-5 shows no hardware complication. The re is minimal grade 1 anterolisthesis of L4 on 5. No fracture seen. Stable mild degenerative changes. Skin duyen remain. IMPRESSION: No acute findings. ACT 112: Negative or not required by law. Electronically signed by: Tj Garrett M.D. 07/01/2025 9:41 AM
[2025-07-01 09:48] LABS: Anion Gap 9.0 (3-11); Blood Urea Nitrogen 9.0 mg/dl (6-23); Calcium 8.5 mg/dl (8.6-10.3); Carbon Dioxide 24.0 mmol/L (21-32); Chloride 100.0 mmol/L (98-107); Creatinine Clr Calc Pharmacy 142.7 ml/min; Glucose 126.0 mg/dl (70-99(Fasting)); Potassium 3.4 mmol/L (3.5-5.1); Sodium 133.0 mmol/L (136-145)
--- NOTE | 2025-07-01 11:10 | Orthopedic Progress Note ---
Date of Service July 01, 2025 Assessment & Plan (1) S/P lumbar spinal fusion: * Continue Current Treatment * Disposition: Home * Daily treatment: Physical Therapy/ Occupational Therapy per protocol * Weight bearing status: as tolerated * Continue to monitor for ABLA * Pain control * DVT prophylaxis, ASA/Eliquis * Office/hospital f/u 2 weeks for progress check and staple/suture removal * Stable for discharge from ortho standpoint Subjective Active Problems: S/p L4-L5 fusion with POD 1 40 y/o male s/p p L4-L5 Interbody Fusion, Posterior Instrumentation with Navigation . Doing well overall, pain managed and improved function. Denies fever/chills, chest pain/SOB, nausea/vomiting. Otherwise no complaints. . Review of Systems All systems reviewed & are unremarkable except as noted in HPI & below. Physical Exam * General: Alert and oriented, no acute distress * Constitutional: well-developed, well-nourished. * Respiratory: Normal respiratory effort, no distress * Gastrointestinal: No tenderness to palpation, no rigidity or guarding. * Skin: No rash or lesion. * Neurologic: Grossly normal * Musculoskeletal: Surgical dressing CDI. Lumbar spine region without obvious deformity or overlying skin changes. Minimal tenderness of surgical region, otherwise no tenderness b/l buttock or LE. Lumbar flexion/extension and rotation ROM with minimal pain. AROM b/l hip flexion, knee flexion/extension, ankle flexion/extension intact. Sensation intact plantar/dorsal foot. Brisk capillary refill. . Results & Data Results & Data Laboratory Results . Laboratory Results - last 24 hr 07/01/25 09:13 WBC 9.66 RBC 3.72 L Hgb 11.7 L Hct 35.2 L MCV 94.6 MCH 31.5 MCHC 33.2 RDW Std Deviation 45.2 RDW Coeff of La 13.1 Plt Count 133 MPV 12.3 Immature Gran % (Auto) 0.3 Neut % (Auto) 56.5 Lymph % (Auto) 30.6 Frederick % (Auto) 9.4 Eos % (Auto) 2.7 Baso % (Auto) 0.5 Neut # (Auto) 5.45 Lymph # (Auto) 2.96 Frederick # (Auto) 0.91 H Eos # (Auto) 0.26 Baso # (Auto) 0.05 Immature Gran # (Auto) 0.03 Sodium 133 L Potassium 3.4 L Chloride 100 Carbon Dioxide 24 Anion Gap 9 BUN 9 Creatinine 0.76 Est Cr Clr Drug Dosing 142.7 eGFR 115.09 BUN/Creatinine Ratio 11.8 Glucose 126 H Calcium 8.5 L Diagnostic Findings . Lumbar Spine CT 06/30/25 00:00 CT lumbar spine wo con CLINICAL HISTORY: O-ARM L4-L5 INTERBODY FUSION COMPARISON STUDY: 03/20/2025 FINDINGS: CT guidance was provided for L4-5 interbody fusion. Dose length product is 1318 mGycm. IMPRESSION: CT for intraoperative guidance. ACT 112: Negative or not required by law. Electronically signed by: Tj Garrett M.D. 06/30/2025 1:36 PM Lumbar Spine X-Ray 07/01/25 07:00 XR lumbar spine 2-3V CLINICAL HISTORY: post-op spine surgery COMPARISON STUDY: 04/14/2023 and 06/30/2025 FINDINGS: Posterior metallic fusion with interbody device at L4-5 shows no hardware complication. There is minimal grade 1 anterolisthesis of L4 on 5. No fracture seen. Stable mild degenerative changes. Skin duyen remain. IMPRESSION: No acute findings. ACT 112: Negative or not required by law. Electronically signed by: Tj Garrett M.D. 07/01/2025 9:41 AM PG Care Time/CCT Total # of Minutes Spent Total Time Spent with Patient: Total time spent is greater than 50% in coordination of care (as documented) at patient's floor/unit and/or counseling patient: Coding Level of Care Code 33560 Post Operative Follow-Up Diagnoses S/P lumbar spinal fusion Z98.1
== END 2025-07-01 11:10 | disposition home or self-care (01) ==
LOC: 3E 05:56 → ASU 05:56